=== PATIENT | male | born 1945 | race African-American/Black ===

== ENCOUNTER 2017-10-30 23:37 | Emergency (ER) | payer MEDICARE ==
[~2017-10-30] VITALS: Ht 182.9 cm; Wt 83.0 kg
[~2017-10-30 23:37] MED LIST: BACT800T5 PO; MECL-62 PO
[2017-10-30 23:42] VITALS: BP 166/83; PULSE 78; RESP 16; TEMP 97.5; O2SAT 100
[2017-10-31 02:12] VITALS: BP 182/88; PULSE 71; RESP 18; O2SAT 97
[2017-10-31] MEDS ORDERED: SODIUM CHLORIDE 0.9% FLUSH 10 ML FLUSH IVF PRN (02:30)
[2017-10-31 03:21] LABS: AUTOMATED NEUTROPHIL # 2.9 TH/MM3 (1.8-7.7); BASOPHIL % 0.7 % (0.0-2.0); EOSINOPHIL # 0.2 TH/MM3 (0-0.4); EOSINOPHIL % 4.4 % (0.0-4.0); HEMATOCRIT 33.6 % (39.0-51.0); HEMOGLOBIN 11.2 GM/DL (13.0-17.0); LYMPH % 32.2 % (9.0-44.0); LYMPHOCYTE # 1.7 TH/MM3 (1.0-4.8); MEAN CORPUSCULAR HEMOGLOBIN 31.7 PG (27.0-34.0); MEAN CORPUSCULAR HGB CONC 33.4 % (32.0-36.0); MEAN PLATELET VOLUME 7.6 FL (7.0-11.0); MONO % 8.5 % (0.0-8.0); MONOCYTE # 0.5 TH/MM3 (0-0.9); NEUT % 54.2 % (16.0-70.0); PLATELET COUNT 232 TH/MM3 (150-450); RED BLOOD COUNT 3.54 MIL/MM3 (4.50-5.90); RED CELL DISTRIBUTION WIDTH 14.6 % (11.6-17.2); WHITE BLOOD COUNT 5.4 TH/MM3 (4.0-11.0)
[2017-10-31 03:30] LABS: PROTHROMBIN TIME - PATIENT 10.3 SEC (9.8-11.6)
[2017-10-31 03:48] LABS: BICARBONATE 26.4 MEQ/L (21.0-32.0); CALCIUM 9.1 MG/DL (8.5-10.1); CREATININE 1.49 MG/DL (0.60-1.30); MAGNESIUM 2.3 MG/DL (1.5-2.5)
[2017-10-31 04:06] VITALS: BP 179/94; PULSE 80; RESP 18; O2SAT 96
--- NOTE | 2017-10-31 04:27 | PD ---
HPI Chief Complaint: Edema Time Seen by Provider: 02:14 Travel History International Travel<30 days: No Contact w/Intl Traveler<30days: No Traveled to known affect area: No History of Present Illness HPI 72-year-old male arrives to the ER due to a outpatient ultrasound of the right lower extremity revealing partial occlusion of multiple deep veins in the right thigh. He reports constant swelling of the right lower extremity from the toes to the knee proximally. He denies pain. Timing constant. Severity moderate. Onset gradual. Duration about 1 week. No shortness of breath or chest pain reported. He does not take anticoagulant. PFSH Past Medical History Hx Anticoagulant Therapy: No Cardiovascular Problems: No Chemotherapy: No Cerebrovascular Accident: No Diabetes: No Diminished Hearing: No Respiratory: No Immunizations Current: Yes Tetanus Vaccination: Unknown Past Surgical History Other Surgery: Yes (SKIN BIOPSY ON RIGHT UPPER SHOULDER BLADE) Social History Alcohol Use: No Tobacco Use: No (never) Substance Use: No Allergies-Medications (Allergen,Severity, Reaction): Coded Allergies: No Known Allergies (Verified Adverse Reaction, Unknown, 10/30/17) Reported Meds & Prescriptions Reported Meds & Active Scripts Active Eliquis (Apixaban) 5 Mg Tab 10 Mg PO BID Eliquis (Apixaban) 5 Mg Tab 5 Mg PO BID Review of Systems Except as stated in HPI: all other systems reviewed are Neg General / Constitutional: No: Fever Cardiovascular: No: Chest Pain or Discomfort Respiratory: No: Cough, Shortness of Breath Physical Exam Narrative GENERAL: 72-year-old male well-nourished well-developed no acute distress Vital Signs Date Time Temp Pulse Resp B/P (MAP) Pulse Ox O2 Delivery O2 Flow Rate FiO2 10/31/17 04:06 80 18 179/94 (122) 96 Room Air 10/31/17 02:12 71 18 182/88 (119) 97 Room Air 10/30/17 23:42 97.5 78 16 166/83 (110) 100 Room Air SKIN: Warm and dry. HEAD: Atraumatic. Normocephalic. EYES: Pupils equal and round. No scleral icterus. No injection or drainage. ENT: No nasal bleeding or discharge. Mucous membranes pink and moist. NECK: Trachea midline. No JVD. CARDIOVASCULAR: Regular rate and rhythm. RESPIRATORY: No accessory muscle use. Clear to auscultation. Breath sounds equal bilaterally. GASTROINTESTINAL: Abdomen soft, non-tender, nondistended. Hepatic and splenic margins not palpable. MUSCULOSKELETAL: 2+ pitting edema of the lower extremity on the right side from the foot to the knees. Left side is normal. NEUROLOGICAL: Awake and alert. No obvious cranial nerve deficits. Motor grossly within normal limits. Five out of 5 muscle strength in the arms and legs. Normal speech. PSYCHIATRIC: Appropriate mood and affect; insight and judgment normal. Data Data Last Documented VS Vital Signs Date Time Temp Pulse Resp B/P (MAP) Pulse Ox O2 Delivery O2 Flow Rate FiO2 10/31/17 04:06 80 18 179/94 (122) 96 Room Air 10/30/17 23:42 97.5 Orders Orders Basic Metabolic Panel (Bmp) (10/31/17 02:28) Complete Blood Count With Diff (10/31/17 02:28) Magnesium (Mg) (10/31/17 02:28) Prothrombin Time / Inr (Pt) (10/31/17 02:28) Act Partial Throm Time (Ptt) (10/31/17 02:28) Ecg Monitoring (10/31/17 02:28) Iv Access Insert/Monitor (10/31/17 02:28) Oximetry (10/31/17 02:28) Oxygen Administration (10/31/17 02:28) Sodium Chloride 0.9% Flush (Ns Flush) (10/31/17 02:30) Ct Pulmonary Angiogram (10/31/17 02:28) Iohexol 350 Inj (Omnipaque 350 Inj) (10/31/17 04:41) Labs Laboratory Tests Test 10/31/17 03:12 White Blood Count 5.4 TH/MM3 Red Blood Count 3.54 MIL/MM3 Hemoglobin 11.2 GM/DL Hematocrit 33.6 % Mean Corpuscular Volume 95.0 FL Mean Corpuscular Hemoglobin 31.7 PG Mean Corpuscular Hemoglobin Concent 33.4 % Red Cell Distribution Width 14.6 % Platelet Count 232 TH/MM3 Mean Platelet Volume 7.6 FL Neutrophils (%) (Auto) 54.2 % Lymphocytes (%) (Auto) 32.2 % Monocytes (%) (Auto) 8.5 % Eosinophils (%) (Auto) 4.4 % Basophils (%) (Auto) 0.7 % Neutrophils # (Auto) 2.9 TH/MM3 Lymphocytes # (Auto) 1.7 TH/MM3 Monocytes # (Auto) 0.5 TH/MM3 Eosinophils # (Auto) 0.2 TH/MM3 Basophils # (Auto) 0.0 TH/MM3 CBC Comment DIFF FINAL Differential Comment Prothrombin Time 10.3 SEC Prothromb Time International Ratio 1.0 RATIO Activated Partial Thromboplast Time 22.1 SEC Blood Urea Nitrogen 13 MG/DL Creatinine 1.49 MG/DL Random Glucose 94 MG/DL Calcium Level 9.1 MG/DL Magnesium Level 2.3 MG/DL Sodium Level 140 MEQ/L Potassium Level 2.9 MEQ/L Chloride Level 107 MEQ/L Carbon Dioxide Level 26.4 MEQ/L Anion Gap 7 MEQ/L Estimat Glomerular Filtration Rate 56 ML/MIN MDM Medical Decision Making Medical Screen Exam Complete: Yes Emergency Medical Condition: Yes Medical Record Reviewed: Yes Differential Diagnosis DVT, PE, coagulopathic disease Narrative Course CBC & BMP Diagram 10/31/17 03:12 Calcium Level 9.1, Magnesium Level 2.[address] Angiography 10/31/178 Signed Impressions: Service Date/Time: , October 31, 2017 04:44 - CONCLUSION: 1. No evidence of pulmonary embolism. 2. The lungs are clear Ben Oliver MD We had a very long discussion about the patient's diagnosis and the treatment. He verbalized understanding. The patient is unwilling to stay here in the hospital and if we are to start heparin and go about calling interventional radiology to initiate thrombectomy procedure the patient would almost certainly elope or leave AGAINST MEDICAL ADVICE. With this approach the patient will receive appropriate anticoagulant, Eliquis, and at the very least be appropriately anticoagulated to prevent propagation of these DVTs. Patient understands he can return any time however things quite unlikely. He did verbalize understanding of everything spoke about including strict compliance with Eliquis. We chose Eliquis because we have coupons here to provide at least one month supply of it. Diagnosis Primary Impression: DVT (deep venous thrombosis) Qualified Codes: I82.401 - Acute embolism and thrombosis of unspecified deep veins of right lower extremity Referrals: Primary Care Physician 2 days Med/Other Pt SpecificInfo: Prescription(s) given Scripts Apixaban (Eliquis) 5 Mg Tab 10 MG PO BID for Blood Clot Prevention, #14 TAB 0 Refills Prov: Thomas Isabel MD 10/31/17 Apixaban (Eliquis) 5 Mg Tab 5 MG PO BID for Blood Clot Prevention, #60 TAB 0 Refills Prov: Thomas Isabel MD 10/31/17 Disposition: 01 DISCHARGE HOME Condition: Stable Thomas Isabel MD Oct 31, 2017 04:27
[2017-10-31] MEDS ORDERED: IOHEXOL 350 MG/ML 10 ML VIAL (for RAD DIAG) IVCONTRAST ONE (04:41)
--- NOTE | 2017-10-31 05:00 | RADRPT ---
EXAM DATE/TIME: 10/31/2017 04:44 [facility] COMPARISON: No previous studies available for comparison. INDICATIONS : Right lower extremity swelling. IV CONTRAST: 75 cc Omnipaque 350 (iohexol) IV RADIATION DOSE: 16.57 CTDIvol (mGy) MEDICAL HISTORY : None SURGICAL HISTORY : None. ENCOUNTER: Initial ACUITY: 1 day PAIN SCALE: 4/10 LOCATION: Bilateral chest TECHNIQUE: Volumetric scanning of the chest was performed using a pulmonary embolism protocol MIP images were re constructed. Using automated exposure control and adjustment of the mA and/or kV according to patien t size, radiation dose was kept as low as reasonably achievable to obtain optimal diagnostic quality images. DICOM format image data is available electronically for review and comparison. Follow-up recommendations for detected pulmonary nodules are based at a minimum on nodule size and pa tient risk factors according to Fleischner Society Guidelines. FINDINGS: PULMONARY ARTERIES: No filling defects are seen in the pulmonary arteries through the segmental level. LUNGS: There is no consolidation or pneumothorax . No concerning pulmonary nodule is visualized. PLEURAE: There is no pleural thickening or pleural effusion. MEDIASTINUM: There is good visualization of the great vessels of the middle mediastinum. No evidence of mediastin al or hilar adenopathy/mass. MUSCULOSKELETAL: Within normal limits for patient age. MISCELLANEOUS: The visualized upper abdominal organs demonstrate no acute abnormality. CONCLUSION: 1. No evidence of pulmonary embolism. 2. The lungs are clear Ben Oliver MD on October 31, 2017 at 4:57 Board Certified Radiologist. This report was verified electronically.
[2017-10-31] MEDS ORDERED: APIX5TAB PO (05:04)
[2017-10-31] MEDS ORDERED: APIXABAN 5 MG TABLET PO ONE (05:30)
== END 2017-10-31 06:02 | disposition home or self-care (01) ==
LOC: NEPC 23:37
DX: I82.401 Acute embolism and thrombosis of unspecified deep veins of right lower extremity (principal); M79.89 Other specified soft tissue disorders; Z79.899 Other long term (current) drug therapy
CPT/HCPCS: 71275; 80048; 83735; 85025; 85610; 85730; 99284; Q9967

== ENCOUNTER 2018-02-11 13:53 | Observation (INO) | payer MEDICARE ==
[~2018-02-11] VITALS: Ht 188 cm; Wt 80.0 kg
[2018-02-11] VITALS (9 sets, daily range): BP systolic 135–175; BP diastolic 78–92; PULSE 65–87; RESP 15–18; TEMP 97.6–98.1; O2SAT 97–100
[~2018-02-11 13:53] MED LIST changes: +APIX5TAB PO; -BACT800T5 PO; -MECL-62 PO
--- NOTE | 2018-02-11 14:24 | PD ---
HPI Chief Complaint: Stroke Alert Time Seen by Provider: 13:58 Travel History International Travel<30 days: No Contact w/Intl Traveler<30days: No Traveled to known affect area: No History of Present Illness HPI Patient is a 72-year-old male who presents the emergency room for evaluation of possible CVA. Patient reports that he went to pay his water bottle around 11: 30 AM this morning, reports that he began to have right arm weakness. Patient reports that he was talking to his brother on the phone, his brother was concerned that he was slurring his speech. His brother called EMS to come evaluate patient. EMS reports that patient initially refused to come to the ER but then was agreeable. Patient reports that the only symptoms he is having at this time is subjective right arm weakness and slurring of speech. PFSH Past Medical History Hx Anticoagulant Therapy: No Cardiovascular Problems: No Chemotherapy: No Cerebrovascular Accident: No Diabetes: No Diminished Hearing: No Respiratory: No Immunizations Current: Yes Past Surgical History Other Surgery: Yes (SKIN BIOPSY ON RIGHT UPPER SHOULDER BLADE) Social History Alcohol Use: No Tobacco Use: No (never) Substance Use: No Allergies-Medications (Allergen,Severity, Reaction): Coded Allergies: No Known Allergies (Verified Adverse Reaction, Unknown, 02/11/18) Reported Meds & Prescriptions Reported Meds & Active Scripts Active Eliquis (Apixaban) 5 Mg Tab 10 Mg PO BID Eliquis (Apixaban) 5 Mg Tab 5 Mg PO BID Review of Systems General / Constitutional: No: Fever Eyes: No: Visual changes HENT: No: Headaches Cardiovascular: No: Chest Pain or Discomfort Respiratory: No: Shortness of Breath Gastrointestinal: No: Abdominal Pain Genitourinary: No: Dysuria Musculoskeletal: No: Pain Skin: No Rash Neurologic: Positive: Weakness Psychiatric: No: Depression Endocrine: No: Polydipsia Hematologic/Lymphatic: No: Easy Bruising Physical Exam Narrative GENERAL: Moderate distress SKIN: Focused skin assessment warm/dry. HEAD: Atraumatic. Normocephalic. EYES: Pupils equal and round. No scleral icterus. No injection or drainage. ENT: No nasal bleeding or discharge. Mucous membranes pink and moist. NECK: Trachea midline. No JVD. CARDIOVASCULAR: Regular rate and rhythm. No murmur appreciated. RESPIRATORY: No accessory muscle use. Clear to auscultation. Breath sounds equal bilaterally. GASTROINTESTINAL: Abdomen soft, non-tender, nondistended. Hepatic and splenic margins not palpable. MUSCULOSKELETAL: No obvious deformities. No clubbing. No cyanosis. No edema. NEUROLOGICAL: Awake and alert. Motor grossly within normal limits. Slurring of speech, patient with NIH scale of 1 PSYCHIATRIC: Appropriate mood and affect; insight and judgment normal. Data Data Last Documented VS Vital Signs Date Time Temp Pulse Resp B/P (MAP) Pulse Ox O2 Delivery O2 Flow Rate FiO2 02/11/18 15:30 67 15 171/92 (118) 100 Room Air 02/11/18 14:16 98.1 Orders Orders Diet Npo (02/11/18 Dinner) Activity Bed Rest (02/11/18 ) Electrocardiogram (02/11/18 ) I-Stat Profile (02/11/18 14:11) Prothrombin Time / Inr (Pt) (02/11/18 14:11) Act Partial Throm Time (Ptt) (02/11/18 14:11) Complete Blood Count With Diff (02/11/18 14:11) Fibrinogen (02/11/18 14:11) Creatine Kinase (Cpk) (02/11/18 14:11) Troponin I (02/11/18 14:11) Ua Includes Microscopic (02/11/18 14:11) Drug Screen, Random Urine (02/11/18 14:11) Type And Screen (02/11/18 14:11) Ct Brain W/O Iv Contrast(Rout) (02/11/18 ) Cta Brain W Iv Contrast W 3d (02/11/18 14:11) Cta Neck W Iv Contrast W 3d (02/11/18 14:11) Consult Neurology (02/11/18 ) Blood Glucose (02/11/18 14:11) Ecg Monitoring (02/11/18 14:11) Neuro Checks Q2HX12,Q4H (02/11/18 14:11) Nursing Bedside Swallow Assess .ONCE (02/11/18 14:11) Iv Access Insert/Monitor (02/11/18 14:11) NPO (02/11/18 14:11) Oximetry (02/11/18 14:11) Resp Oxygen Nc Stroke (02/11/18 ) Cath For Specimen (02/11/18 14:11) Chest, Single Ap (02/11/18 14:15) (Hub Use Only)Inp Phy Cons/Ref (02/11/18 ) Iodixanol 320 Inj (Rad Ct) (Visipaque 32 (02/11/18 14:39) Aspirin Supp (Aspirin Supp) (02/11/18 15:00) Clopidogrel (Plavix) (02/11/18 15:15) Aspirin Chew (Aspirin Chew) (02/11/18 15:30) Ceftriaxone Inj (Rocephin Inj) (02/11/18 16:00) Admit Order (Ed Use Only) (02/11/18 16:08) Labs Laboratory Tests Test 02/11/18 14:10 02/11/18 15:00 02/11/18 15:20 White Blood Count 3.5 TH/MM3 Red Blood Count 3.88 MIL/MM3 Hemoglobin 12.0 GM/DL Bedside Hemoglobin 11.6 G/DL Hematocrit 35.4 % Bedside Hematocrit 34.0 % Mean Corpuscular Volume 91.1 FL Mean Corpuscular Hemoglobin 30.9 PG Mean Corpuscular Hemoglobin Concent 33.9 % Red Cell Distribution Width 16.2 % Platelet Count 188 TH/MM3 Mean Platelet Volume 7.7 FL Neutrophils (%) (Auto) 54.6 % Lymphocytes (%) (Auto) 32.5 % Monocytes (%) (Auto) 9.7 % Eosinophils (%) (Auto) 2.7 % Basophils (%) (Auto) 0.5 % Neutrophils # (Auto) 1.9 TH/MM3 Lymphocytes # (Auto) 1.1 TH/MM3 Monocytes # (Auto) 0.3 TH/MM3 Eosinophils # (Auto) 0.1 TH/MM3 Basophils # (Auto) 0.0 TH/MM3 CBC Comment DIFF FINAL Differential Comment Prothrombin Time 10.3 SEC Prothromb Time International Ratio 1.0 RATIO Activated Partial Thromboplast Time 23.3 SEC Fibrinogen 273 mg/dL Bedside Sodium 141 MMOL/L Bedside Potassium 3.7 MMOL/L Bedside Chloride 105 MMOL/L Bedside Blood Urea Nitrogen 21 MG/DL Bedside Creatinine 1.3 MG/DL Bedside Glucose 105 MG/DL Total Creatine Kinase 116 U/L Troponin I 0.11 NG/ML Urine Color GREEN Urine Turbidity CLOUDY Urine pH 6.0 Urine Specific [place] 1.025 Urine Protein TRACE mg/dL Urine Glucose (UA) NEG mg/dL Urine Ketones NEG mg/dL Urine Occult Blood SMALL Urine Nitrite NEG Urine Bilirubin NEG Urine Urobilinogen LESS THAN 2.0 MG/DL Urine Leukocyte Esterase MOD Urine RBC /hpf Urine WBC 68 /hpf Urine Squamous Epithelial Cells <1 /hpf Urine Bacteria RARE /hpf Urine Mucus FEW /lpf Urine Opiates Screen NEG Urine Barbiturates Screen NEG Urine Amphetamines Screen NEG Urine Benzodiazepines Screen NEG Urine Cocaine Screen NEG Urine Cannabinoids Screen NEG MDM Medical Screen Exam Complete: Yes Emergency Medical Condition: Yes Medical Record Reviewed: Yes Differential Diagnosis cva, tia, intracranial hemorrhage, acs, arrhythmia Narrative Course During the course of the patients emergency department visit, the patients history, examination, and differential diagnosis were reviewed with the patient. The patient was placed on a electronic device monitor with oximetry and frequent blood pressure monitoring. The patient had an IV access obtained and blood work sent for analysis. [id number] Patient is a 72 year old male who presents to the ER with complaints of slurring of speech as well as subjective right upper extremity weakness. On exam, patient has good muscle strength to bilateral upper extremities, there is no pronator drift, he does have slurring of speech on exam. NIH scale [address] Nixon at 2:18pm - request TPA offered to patient. [id number]: patient brother at bedside, reports that speech is back to baseline, reported concerns that he did have slurring of speech earlier today, patient reports that he is feeling better and right arm weakness has improved The patient was initially provided aspirin The patients laboratory studies were reviewed and remarkable for Laboratory Tests Test 02/11/18 14:10 White Blood Count 3.5 TH/MM3 (4.0-11.0) Red Blood Count 3.88 MIL/MM3 (4.50-5.90) Hemoglobin 12.0 GM/DL (13.0-17.0) Bedside Hemoglobin 11.6 G/DL (13.0-17.0) Hematocrit 35.4 % (39.0-51.0) Bedside Hematocrit 34.0 % (39.0-51.0) Mean Corpuscular Volume 91.1 FL (80.0-100.0) Mean Corpuscular Hemoglobin 30.9 PG (27.0-34.0) Mean Corpuscular Hemoglobin Concent 33.9 % (32.0-36.0) Red Cell Distribution Width 16.2 % (11.6-17.2) Platelet Count 188 TH/MM3 (150-450) Mean Platelet Volume 7.7 FL (7.0-11.0) Neutrophils (%) (Auto) 54.6 % (16.0-70.0) Lymphocytes (%) (Auto) 32.5 % (9.0-44.0) Monocytes (%) (Auto) 9.7 % (0.0-8.0) Eosinophils (%) (Auto) 2.7 % (0.0-4.0) Basophils (%) (Auto) 0.5 % (0.0-2.0) Neutrophils # (Auto) 1.9 TH/MM3 (1.8-7.7) Lymphocytes # (Auto) 1.1 TH/MM3 (1.0-4.8) Monocytes # (Auto) 0.3 TH/MM3 (0-0.9) Eosinophils # (Auto) 0.1 TH/MM3 (0-0.4) Basophils # (Auto) 0.0 TH/MM3 (0-0.2) CBC Comment DIFF FINAL Differential Comment Prothrombin Time 10.3 SEC (9.8-11.6) Prothromb Time International Ratio 1.0 RATIO Activated Partial Thromboplast Time 23.3 SEC (24.3-30.1) Bedside Sodium 141 MMOL/L (137-144) Bedside Potassium 3.7 MMOL/L (3.6-5.0) Bedside Chloride 105 MMOL/L (102-111) Bedside Blood Urea Nitrogen 21 MG/DL (5-21) Bedside Creatinine 1.3 MG/DL (0.6-1.3) Bedside Glucose 105 MG/DL (68-110) Radiology studies were reviewed and remarkable for Last Impressions Head CT 02/11/18 0000 Signed Impressions: CONCLUSION: 1. No acute intracranial abnormality is identified. 2. Chronic findings include mild generalized atrophy and mild periventricular white matter low-attenuation characteristic of chronic microvascular ischemia. Patient with resolution of symptoms - most likely TIA - patient does not require TPA at this time Dr. Nixon request asa and plavix and tia workup case reviewed with Dr. Valadez who accepts pt to service Critical Care Narrative Aggregate critical care time was 30 minutes. Time to perform other separately billable procedures was not included in the critical care time. My time did not include minutes spent treating any other patients simultaneously or on activities that did not directly contribute to the patient's treatment. The services I provided to this patient were to treat and/or prevent clinically significant deterioration that could result in: , decompensation, deterioration I provided critical care services requiring my management, as noted below: Chart data review, documentation time, medication orders and management, vital sign assessments/reviewing monitor data, ordering and reviewing lab tests, ordering and interpreting/reviewing x-rays and diagnostic studies, care of the patient and discussion of the patient with the admitting physicians. Stroke Alert NIHSS NIH Stroke Scale Result: 1 NIHSS Time Completed: 14:16 Diagnosis Diagnosis: Primary Impression: TIA (transient ischemic attack) Qualified Codes: G45.9 - Transient cerebral ischemic attack, unspecified Additional Impression: UTI (urinary tract infection) Admitting Physician Requests: Observation [place] Gorman DO Feb 11, 2018 14:24
[2018-02-11 14:31] LABS: AUTOMATED NEUTROPHIL # 1.9 TH/MM3 (1.8-7.7); BASOPHIL % 0.5 % (0.0-2.0); EOSINOPHIL # 0.1 TH/MM3 (0-0.4); EOSINOPHIL % 2.7 % (0.0-4.0); HEMATOCRIT 35.4 % (39.0-51.0); LYMPH % 32.5 % (9.0-44.0); LYMPHOCYTE # 1.1 TH/MM3 (1.0-4.8); MEAN CELL VOLUME 91.1 FL (80.0-100.0); MEAN CORPUSCULAR HEMOGLOBIN 30.9 PG (27.0-34.0); MEAN CORPUSCULAR HGB CONC 33.9 % (32.0-36.0); MEAN PLATELET VOLUME 7.7 FL (7.0-11.0); MONO % 9.7 % (0.0-8.0); MONOCYTE # 0.3 TH/MM3 (0-0.9); NEUT % 54.6 % (16.0-70.0); PLATELET COUNT 188 TH/MM3 (150-450); RED BLOOD COUNT 3.88 MIL/MM3 (4.50-5.90); RED CELL DISTRIBUTION WIDTH 16.2 % (11.6-17.2); WHITE BLOOD COUNT 3.5 TH/MM3 (4.0-11.0)
--- NOTE | 2018-02-11 14:36 | RADRPT ---
EXAM DATE: 02/11/2018 2:31 PM EDT AGE/SEX: 72 years / Male INDICATIONS: Stroke alert, slurred speech. CLINICAL DATA: This is the patient's initial encounter. Patient reports that signs and symptoms have been present for 1 day and indicates a pain score of Nonresponsive. MEDICAL/SURGICAL HISTORY: Non-responsive. Non-responsive. RADIATION DOSE: 56.35 CTDI (mGy) COMPARISON: No prior [place] exams available for comparison. Report was telephoned to Dr. Gorman by Dr. Sanchez at 2:32 PM. TECHNIQUE: CT of the head without contrast. Using automated exposure control and adjustment of the mA and/or kV according to patient size, radiation dose was kept as low as reasonably achievable to ob tain optimal diagnostic quality images. FINDINGS: Cerebrum: There is mild generalized atrophy and ventricles are normal given the degree of atrophy. M ild periventricular white matter change is present. No midline shift, mass lesion, hemorrhage or acu te infarction. No extraaxial fluid collections are seen. Posterior Fossa: The cerebellum and brainstem demonstrate no acute abnormality. The 4th ventricle is midline. The cerebellopontine angle is within normal limits. Extracranial: The visualized sinuses are clear. Skull: The calvaria is intact. No skull fracture. CONCLUSION: 1. No acute intracranial abnormality is identified. 2. Chronic findings include mild generalized atrophy and mild periventricular white matter low-atten uation characteristic of chronic microvascular ischemia. Electronically signed by: Taran Sanchez MD 02/11/2018 2:34 PM EDT
[2018-02-11] MEDS ORDERED: IODIXANOL 320 MG/ML 10 ML VIAL (for Rad CT) IVCONTRAST ONE (14:39)
[2018-02-11 14:42] LABS: PROTHROMBIN TIME - PATIENT 10.3 SEC (9.8-11.6)
[2018-02-11 14:55] LABS: TROPONIN I 0.11 NG/ML (0.02-0.05)
[2018-02-11] MEDS ORDERED: ASPIRIN 300 MG SUPP RECTAL ONE (15:00)
--- NOTE | 2018-02-11 15:09 | RADRPT ---
EXAM DATE: 02/11/2018 2:58 PM EDT AGE/SEX: 72 years / Male INDICATIONS: Stroke alert, slurred speech. CLINICAL DATA: This is the patient's initial encounter. Patient reports that signs and symptoms have been present for 1 day and indicates a pain score of Nonresponsive. MEDICAL/SURGICAL HISTORY: Non-responsive. Non-responsive. RADIATION DOSE: 10.66 CTDI (mGy) ; Combined studies COMPARISON: [facility], CT BRAIN W/O CONTRAST, 02/11/2018. . TECHNIQUE: Volumetric scanning was performed using a multi-row detector CT scanner during bolus infu lizette of 75 ml Visipaque 320 (iodixanol) nonionic water-soluble contrast as a cumulative dose for mul tiple exams. The data was post processed with a variety of visualization algorithms including full volume maximum intensity projection, multi-planar sliding thin slab reformation, curved planar reform ation, and surface rendering techniques. Using automated exposure control and adjustment of the mA a nd/or kV according to patient size, radiation dose was kept as low as reasonably achievable to obtain optimal diagnostic quality images. FINDINGS: Anterior circulation: The internal carotid arteries demonstrate no abnormality or significant stenosi s. A1 segments are symmetric. Anterior cerebral arteries and middle cerebral arteries demonstrate sym metric enhancement without stenosis or aneurysm visualized. Posterior circulation: Right vertebral artery is dominant. Basilar artery demonstrates no abnormality or aneurysm. Posterior cerebral arteries demonstrate no significant stenosis. CONCLUSION: No acute intracranial vascular abnormality is identified. No occluded arterial vessels are seen. Electronically signed by: Taran Sanchez MD 02/11/2018 3:07 PM EDT
[2018-02-11] MEDS ORDERED: CLOPIDOGREL 75 MG TAB PO ONE (15:15)
[2018-02-11] MEDS ORDERED: ASPIRIN 81 MG CHEW TAB CHEW ONE (15:30)
--- NOTE | 2018-02-11 15:42 | RADRPT ---
EXAM DATE: 02/11/2018 3:33 PM EDT AGE/SEX: 72 years / Male INDICATIONS: Short of breath. CLINICAL DATA: This is the patient's initial encounter. Patient reports that signs and symptoms have been present for 1 day and indicates a pain score of 0/10. MEDICAL/SURGICAL HISTORY: None. None. COMPARISON: No prior [place] exams available for comparison. FINDINGS: A single AP view of the chest demonstrates the lungs to be symmetrically aerated without evidence of mass, infiltrate or effusion. The cardiomediastinal contours are unremarkable. Osseous structures a re intact. CONCLUSION: Negative examination. Electronically signed by: Camron Galloway MD 02/11/2018 3:41 PM EDT
[2018-02-11 15:46] LABS: BACTERIA, URINE RARE /hpf; BILIRUBIN, URINE NEG (NEG); BLOOD, URINE SMALL (NEG); GLUCOSE,URINE NEG (NEG); KETONE, URINE NEG (NEG); MUCUS URINE FEW /lpf (OCC); NITRITE,URINE NEG (NEG); SQUAMOUS EPITHELIAL CELL URINE <1 /hpf (0-5); URINE COLOR GREEN (YELLW/STRAW); URINE LEUKOCYTE ESTERASE MOD (NEG)
[2018-02-11] MEDS ORDERED: cefTRIAXone INJ 1,000 MG in SODIUM CHLORIDE 0.9% INJ 100 ML IV ONE (16:00)
--- NOTE | 2018-02-11 16:00 | RADRPT ---
EXAM DATE: 02/11/2018 3:03 PM EDT AGE/SEX: 72 years / Male INDICATIONS: Stroke alert, slurred speech. CLINICAL DATA: This is the patient's initial encounter. Patient reports that signs and symptoms have been present for 1 day and indicates a pain score of Nonresponsive. MEDICAL/SURGICAL HISTORY: Non-responsive. Non-responsive. RADIATION DOSE: 10.66 CTDI (mGy) ; Combined studies COMPARISON: No prior [place] exams available for comparison. TECHNIQUE: Volumetric scanning was performed using a multirow detector CT scanner during bolus infus ion of 75 ml Visipaque 320 (iodixanol) nonionic water-soluble contrast as a cumulative dose for mult iple exams. The data was postprocessed with a variety of visualization algorithms including full-vo lume maximum intensity projection, multiplanar sliding thin-slab reformation, curved-planar reformati on, and surface-rendering techniques. Using automated exposure control and adjustment of the mA and/ or kV according to patient size, radiation dose was kept as low as reasonably achievable to obtain op timal diagnostic quality images. Elevated flow velocities and ICA/CCA ratios have been found to correlate with increased degrees of ve ssel stenosis, calculated as percentage of diameter relative to a normal segment of distal ICA/CCA. FINDINGS: Aortic Arch: There is a bovine arch with left vertebral artery originating directly from the arch be tween the common trunk and left subclavian artery. Right Carotid: Common carotid artery is within normal limits. Carotid bulb demonstrates no significa nt atherosclerotic disease or stenosis. No dissection or aneurysm is present. Left Carotid: Common carotid artery is within normal limits. Carotid bulb demonstrates no significan t atherosclerotic disease or stenosis. No dissection or aneurysm is present. Vertebrals: Right vertebral artery is dominant. Other: The visualized surrounding structures demonstrate no acute finding. CONCLUSION: Neck arterial vasculature demonstrates no significant abnormality. Electronically signed by: Taran Sanchez MD 02/11/2018 3:59 PM EDT
[2018-02-11] MEDS ORDERED: [UNRECOGNIZED DRUG - REMARK] OTHER SCH (17:30)
[2018-02-11] MEDS ORDERED: NALOXONE HCL 0.4 MG/ML AMP IV PUSH PRN (17:45)
[2018-02-11] MEDS ORDERED: MAGNESIUM HYDROXIDE SUSP 30 ML CUP PO PRN (17:45)
[2018-02-11] MEDS ORDERED: ACETAMINOPHEN 325 MG TAB PO PRN (17:45)
[2018-02-11] MEDS ORDERED: SODIUM CHLORIDE 0.9% FLUSH 10 ML FLUSH IV FLUSH PRN (17:45)
[2018-02-11] MEDS ORDERED: SENNOSIDES 8.6 MG TAB PO PRN (17:45)
--- NOTE | 2018-02-11 17:54 | HHI.HP ---
[facility] Service [facility] Primary Care Physician Taran Goldstein MD Admission Diagnosis TIA Diagnoses: Chief Complaint: Right arm weakness, slurred speech Travel History International Travel<30 Days: No Contact w/Intl Traveler <30 Da: No Traveled to Known Affected Are: No History of Present Illness Patient is a 72-year-old AF male with past medical history of DVT, BPH who came into the hospital for evaluation of possible CVA. Patient states that he went to pay his water bill and he felt right arm weakness, states it "feels funny," decreased strength and he is unable to control it. States it came on and off and he went home and was talked to his brother and he also felt his speech is funny, unable to control. Brother states that he started slurring his speech. They were concerned about the symptoms that he came to the hospital by EMS ambulance. At the hospital, patient states everything now is back to his normal. Brother and niece at the bedside who states that he is back to his baseline. As per nursing, patient wanted to go home. Discussed with patient importance of compliance of staying until seen by neurologist and also compliance with medical management. Patient verbalized understanding and states he will stay. Denies right upper arm extremity, slurred speech. Denies change in vision, and equal strength. Denies pain and discomfort. Denies SOB/ dyspnea. Denies chest pain, palpitations, headaches, dizziness. Denies fevers, chills, n/v/d. Denies dysuria. Patient denies history of hypertension, diabetes, hypothyroidism, hyperlipidemia. Patient states he has right lower extremity leg blood clot before, leg was swollen and he was given medication for it. Patient unable to remember the medication. States that he went to [facility] and refill the medication but he was unable to. He only took the medication for approximately 30 days. Per review of records patient was seen October 2017 and was prescribed Eliquis for 30 days. initial vital sign 143/78, 98.1, 80, 17 Chest x-ray negative Head CTA no acute intracranial vascular abnormality is identified. No occluded arterial vessels are seen Head CT showed no acute intracranial abnormality is identified. Chronic findings include mild generalized atrophy and mild periventricular white matter low-attenuation characteristic of chronic microvascular ischemia Review of Systems Except as stated in HPI: all other systems reviewed are Neg Past Family Social History Past Medical History DVT BPH Past Surgical History None Reported Medications Reported Meds & Active Scripts Active Eliquis (Apixaban) 5 Mg Tab 10 Mg PO BID Eliquis (Apixaban) 5 Mg Tab 5 Mg PO BID Allergies: Coded Allergies: No Known Allergies (Verified Adverse Reaction, Unknown, 02/11/18) Family History Mother has hypertension Father of prostate cancer Social History Denies alcohol use Denies tobacco use Denies illicit drug Physical Exam Vital Signs Vital Signs Date Time Temp Pulse Resp B/P (MAP) Pulse Ox O2 Delivery O2 Flow Rate FiO2 02/11/18 15:30 67 15 171/92 (118) 100 Room Air 02/11/18 14:19 87 18 100 Room Air 02/11/18 14:16 98.1 87 18 143/78 (99) 100 Room Air 02/11/18 14:15 98.1 87 18 143/78 (99) 100 Room Air 02/11/18 14:15 100 Room Air 02/11/18 14:07 98.1 80 17 143/78 (99) 100 Physical Exam GENERAL: This is a well-nourished, well-developed patient, in no apparent distress. SKIN: No rashes, ecchymoses or lesions. Cool and dry. HEAD: Normocephalic. . EYES: Pupils equal round and reactive. Extraocular motions intact. No scleral icterus. No injection or drainage. ENT: Nose without bleeding. Throat without erythema. Uvula midline. Airway patent. NECK: Trachea midline. CARDIOVASCULAR: Regular rate and rhythm without murmurs, gallops, or rubs. RESPIRATORY: Clear to auscultation. Breath sounds equal bilaterally. No wheezes , rales, or rhonchi. GASTROINTESTINAL: Abdomen soft, non-tender, nondistended. MUSCULOSKELETAL: Extremities without clubbing, cyanosis, or edema. NEUROLOGICAL: Awake and alert. Cranial nerves II through XII intact. Motor and sensory grossly within normal limits. Equal strength both upper and lower extremities. Normal to slurred speech. Laboratory Laboratory Tests Test 02/11/18 14:10 02/11/18 15:00 02/11/18 15:20 White Blood Count 3.5 Red Blood Count 3.88 Hemoglobin 12.0 Bedside Hemoglobin 11.6 Hematocrit 35.4 Bedside Hematocrit 34.0 Mean Corpuscular Volume 91.1 Mean Corpuscular Hemoglobin 30.9 Mean Corpuscular Hemoglobin Concent 33.9 Red Cell Distribution Width 16.2 Platelet Count 188 Mean Platelet Volume 7.7 Neutrophils (%) (Auto) 54.6 Lymphocytes (%) (Auto) 32.5 Monocytes (%) (Auto) 9.7 Eosinophils (%) (Auto) 2.7 Basophils (%) (Auto) 0.5 Neutrophils # (Auto) 1.9 Lymphocytes # (Auto) 1.1 Monocytes # (Auto) 0.3 Eosinophils # (Auto) 0.1 Basophils # (Auto) 0.0 CBC Comment DIFF FINAL Differential Comment Prothrombin Time 10.3 Prothromb Time International Ratio 1.0 Activated Partial Thromboplast Time 23.3 Fibrinogen 273 Bedside Sodium 141 Bedside Potassium 3.7 Bedside Chloride 105 Bedside Blood Urea Nitrogen 21 Bedside Creatinine 1.3 Bedside Glucose 105 Total Creatine Kinase 116 Troponin I 0.11 Urine Color GREEN Urine Turbidity CLOUDY Urine pH 6.0 Urine Specific [place] 1.025 Urine Protein TRACE Urine Glucose (UA) NEG Urine Ketones NEG Urine Occult Blood SMALL Urine Nitrite NEG Urine Bilirubin NEG Urine Urobilinogen LESS THAN 2.0 Urine Leukocyte Esterase MOD Urine RBC Urine WBC 68 Urine Squamous Epithelial Cells <1 Urine Bacteria RARE Urine Mucus FEW Urine Opiates Screen NEG Urine Barbiturates Screen NEG Urine Amphetamines Screen NEG Urine Benzodiazepines Screen NEG Urine Cocaine Screen NEG Urine Cannabinoids Screen NEG Result Diagram: 02/11/18 1410 Imaging Last Impressions Chest X-Ray 02/11/18 1415 Signed Impressions: CONCLUSION: Negative examination. Neck CTA 02/11/18 141 Signed Impressions: CONCLUSION: Neck arterial vasculature demonstrates no significant abnormality. Head CTA 02/11/18 1411 Signed Impressions: CONCLUSION: No acute intracranial vascular abnormality is identified. No occluded arterial vessels are seen. Head CT 02/11/18 0000 Signed Impressions: CONCLUSION: 1. No acute intracranial abnormality is identified. 2. Chronic findings include mild generalized atrophy and mild periventricular white matter low-attenuation characteristic of chronic microvascular ischemia. Caprini VTE Risk Assessment Caprini VTE Risk Assessment: Mod/High Risk (score >= 2) Caprini Risk Assessment Model Point Value = 1 Point Value = 2 Point Value = 3 Point Value = 5 Age 41-60 Minor surgery BMI > 25 kg/m2 Swollen legs Varicose veins or History of unexplained or recurrent spontaneous Oral contraceptives or hormone replacement Sepsis (< 1 month) Serious lung disease, including pneumonia (< 1 month) Abnormal pulmonary function Acute myocardial infarction Congestive heart failure (< 1 month) History of inflammatory bowel disease Medical patient at bed rest Age 61-74 Arthroscopic surgery Major open surgery (> 45 min) Laparoscopic surgery (> 45 min) Malignancy Confined to bed (> 72 hours) Immobilizing plaster cast Central venous access Age >= 75 History of VTE Family history of VTE Factor V Leiden Prothrombin [id number] Lupus anticoagulant Anticardiolipin antibodies Elevated serum homocysteine Heparin-induced thrombocytopenia Other congenital or acquired thrombophilia Stroke (< 1 month) Elective arthroplasty Hip, pelvis, or leg fracture Acute spinal cord injury (< 1 month) Prophylaxis Regimen Total Risk Factor Score Risk Level Prophylaxis Regimen 0-1 Low Early ambulation 2 Moderate Order ONE of the following: *Sequential Compression Device (SCD) *Heparin 5000 units SQ BID 3-4 Higher Order ONE of the following medications: *Heparin 5000 units SQ TID *Enoxaparin/Lovenox 40 mg SQ daily (WT < 150 kg, CrCl > 30 mL/min) *Enoxaparin/Lovenox 30 mg SQ daily (WT < 150 kg, CrCl > 10-29 mL/min) *Enoxaparin/Lovenox 30 mg SQ BID (WT < 150 kg, CrCl > 30 mL/min) AND/OR *Sequential Compression Device (SCD) 5 or more Highest Order ONE of the following medications: *Heparin 5000 units SQ TID (Preferred with Epidurals) *Enoxaparin/Lovenox 40 mg SQ daily (WT < 150 kg, CrCl > 30 mL/min) *Enoxaparin/Lovenox 30 mg SQ daily (WT < 150 kg, CrCl > 10-29 mL/min) *Enoxaparin/Lovenox 30 mg SQ BID (WT < 150 kg, CrCl > 30 mL/min) AND *Sequential Compression Device (SCD) Assessment and Plan Problem List: (1) UTI (urinary tract infection) ICD Code: N39.0 - Urinary tract infection, site not specified Status: Acute (2) TIA (transient ischemic attack) ICD Code: G45.9 - Transient cerebral ischemic attack, unspecified Status: Acute Assessment and Plan Patient is a 72-year-old AF male with past medical history of DVT, BPH who came into the hospital for evaluation of possible CVA. Transient ischemic attack, acute -Reports of right upper extremity weakness, slurred speech -CT of the head negative -CTA of the neck and brain negative -Chest x-ray negative -Neurology consulted for further recommendations and evaluation. Appreciate recommendation. -Patient was offered TPA in the ED -Discussed extensively that he needs to likely stay overnight for observation. Patient wanting to go home. Discussed and explained with family members at the bedside. -Patient was given aspirin, Plavix -Check lipid profile, LFT -PT eval and treat Urinary tract infection BPH -Patient is being treated for urinary tract infection in the outpatient, this is recurrent -Reports BPH and taking medication but does not know what medication he is taking -Patient was given IV ceftriaxone. Will continue. Follow-up cultures. History of right lower extremity DVT -Took Eliquis for only a month in October. Questionable compliance -Right lower extremity without swelling, pain but per review of records partial occlusion of multiple deep veins in the right thigh. -US doppler DVT prop SCDs Code Status Full Code Discussed Condition With Patient, nursing, Dr. De La Cruz Problem Qualifiers (1) TIA (transient ischemic attack): Qualified Codes: G45.9 - Transient cerebral ischemic attack, unspecified Jennifer Mcknight Feb 11, 2018 17:54
[2018-02-11] MEDS ORDERED: PHEN-510 PO (18:34)
[2018-02-11] MEDS ORDERED: URIB118C PO (18:34)
--- NOTE | 2018-02-11 18:47 | PD.CONS ---
History of Present Illness Service Neurology Consult Requested By ER Reason for Consult Stroke alert Primary Care Physician Taran Goldstein MD History of Present Illness 72-year-old AF male with past medical history of DVT, BPH who came into the hospital for evaluation of possible stroke. Given his stroke alert altered speech right arm weakness. States his noticed after done some exercise class. While in the ER his symptoms resolved and thus is not IV TPA candidate. He seen in the ER for partially occlusive DVT started on Eliquis. Patient cannot reliably state that he has been taking this medication or had a refill. Head CTA no acute intracranial vascular abnormality is identified. No occluded arterial vessels are seen Head CT showed no acute intracranial abnormality is identified. Chronic findings include mild generalized atrophy and mild periventricular white matter low-attenuation characteristic of chronic microvascular ischemia Review of Systems Except as stated in HPI: all other systems reviewed are Neg Past Family Social History Past Medical History DVT BPH Past Surgical History None Reported Medications Reported Meds & Active Scripts Active Eliquis (Apixaban) 5 Mg Tab 5 Mg PO BID Allergies: Coded Allergies: No Known Allergies (Verified Adverse Reaction, Unknown, 02/11/18) Family History Mother has hypertension Father of prostate cancer Social History Denies alcohol use Denies tobacco use Denies illicit drug Review of Systems All other ROS: ROS reviewed as documented in chart Past Family Social History Allergies: Coded Allergies: No Known Allergies (Verified Adverse Reaction, Unknown, 02/11/18) Active Ordered Medications Current Medications Medications (Trade) Dose Ordered Sig/Phyllis Route Start Time Stop Time Status Last Admin (NS Flush) 2 ml UNSCH PRN IV FLUSH 02/11/18 17:45 (NS Flush) 2 ml BID IV FLUSH 02/11/18 21:00 (Tylenol) 650 mg Q4H PRN PO 02/11/18 17:45 (Narcan Inj) 0.4 mg UNSCH PRN IV PUSH 02/11/18 17:45 (Milk Of Magnesia Liq) 30 ml Q12H PRN PO 02/11/18 17:45 (Senokot) 17.2 mg Q12H PRN PO 02/11/18 17:45 Exam I&O / VS 02/11/18 02/11/18 02/12/18 15:00 23:00 07:00 Intake Total 100 ml Balance 100 ml Intake IV Total 100 ml Vital Signs Date Time Temp Pulse Resp B/P (MAP) Pulse Ox O2 Delivery O2 Flow Rate FiO2 02/11/18 18:04 65 16 175/88 (117) 100 02/11/18 18:01 65 16 175/88 (117) 100 Room Air 02/11/18 15:30 67 15 171/92 (118) 100 Room Air 02/11/18 14:19 87 18 100 Room Air 02/11/18 14:16 98.1 87 18 143/78 (99) 100 Room Air 02/11/18 14:15 98.1 87 18 143/78 (99) 100 Room Air 02/11/18 14:15 100 Room Air 02/11/18 14:07 98.1 80 17 143/78 (99) 100 General: Alert and Oriented, No acute distress Eye: EOMI Respiratory: Non-labored respirations Neurologic: Alert, Oriented, Normal sensory, Normal motor, No focal defects, CN II-XII intact, Normal DTR's Psychiatric: Cooperative, Appropriate mood & affect, Normal judgement Exam Comments Awake alert oriented 3, slight slur to speech I suspect is chronic, follows able to repeat extraocular movements intact, minimally reduced right nasolabial fold, tongue midline no pronator drift, no dysmetria no neglect sensory intact gait steady Romberg negative Review/Management Diagnosis/Plan: (1) TIA (transient ischemic attack) ICD Codes: G45.9 - Transient cerebral ischemic attack, unspecified Status: Acute Plan: Probable left hemispheric TIA versus tiny infarct Etiology may be hypercoagulable state as he had a DVT few months ago Compliance to medications may be an issue Recommendations Resume Eliquis May require home health evaluation/med check follow-up Follow-up MRI brain scan PT evaluation Blood pressure control Follow-up lipid panel (2) DVT (deep venous thrombosis) ICD Codes: I82.409 - Acute embolism and thrombosis of unspecified deep veins of unspecified lower extremity Status: Chronic (3) UTI (urinary tract infection) ICD Codes: N39.0 - Urinary tract infection, site not specified Status: Acute (4) HTN (hypertension) ICD Codes: I10 - Essential (primary) hypertension Status: Chronic Problem Qualifiers (1) TIA (transient ischemic attack): Qualified Codes: G45.9 - Transient cerebral ischemic attack, unspecified (2) DVT (deep venous thrombosis): (3) HTN (hypertension): Qualified Codes: I10 - Essential (primary) hypertension Justin Nixon MD Feb 11, 2018 18:47
--- NOTE | 2018-02-11 19:36 | RADRPT ---
EXAM DATE: 02/11/2018 7:11 PM EDT AGE/SEX: 72 years / Male INDICATIONS: History of right lower extremity swelling. CLINICAL DATA: This is the patient's initial encounter. Patient reports that signs and symptoms have been present for 3 months and indicates a pain score of 0/10. MEDICAL/SURGICAL HISTORY: . BPH. None. COMPARISON: No prior [place] exams available for comparison. TECHNIQUE: Venous ultrasound of both lower extremities was performed from the inguinal ligament to t he proximal calf. Real-time, color Doppler and spectral tracing, compression and augmentation techni ques were used. FINDINGS: Right Leg: There is normal compressibility of the deep venous system from the inguinal region to the proximal calf. No echogenic clot is seen in the lumen of the common femoral, femoral, popliteal, an d posterior tibial veins. There is a normal response of the venous system to proximal and distal aug mentation and respiration. Left Leg: There is normal compressibility of the deep venous system from the inguinal region to the proximal calf. No echogenic clot is seen in the lumen of the common femoral, femoral, popliteal, and posterior tibial veins. There is a normal response of the venous system to proximal and distal augm entation and respiration. CONCLUSION: 1. The study is negative for bilateral lower extremity deep venous thrombosis. Electronically signed by: Myles Sneed MD 02/11/2018 7:35 PM EDT
[2018-02-11 20:10] LABS: HDL CHOLESTEROL 40.3 MG/DL (40.0-60.0); TOTAL BILIRUBIN ADULT 0.5 MG/DL (0.2-1.0); TOTAL PROTEIN 7.7 GM/DL (6.4-8.2)
[2018-02-11 20:15] LABS: ALBUMIN 3.4 GM/DL (3.4-5.0); CHOLESTEROL/ HDL RATIO 3.84 RATIO; DIRECT BILIRUBIN ADULT 0.1 MG/DL (0.0-0.2); INDIRECT BILIRUBIN 0.4 MG/DL (0.0-0.8)
[2018-02-11] MEDS: SODIUM CHLORIDE 0.9% FLUSH 10 ML FLUSH IV FLUSH SCH (21:37)
--- NOTE | 2018-02-11 22:16 | RADRPT ---
EXAM DATE: 02/11/2018 10:04 PM EDT AGE/SEX: 72 years / Male INDICATIONS: TIA. CLINICAL DATA: This is the patient's initial encounter. Patient reports that signs and symptoms have been present for 1 day and indicates a pain score of 0/10. MEDICAL/SURGICAL HISTORY: Deep venous thrombosis. Hypertension. . Skin Bx COMPARISON: [facility] [place], CT BRAIN W/O CONTRAST, 02/11/2018. C, CTA CAROTID ARTERIES W 3D RECON, 8. C, CTA BRAIN W 3D RECON, 02/11/2018. . TECHNIQUE: Multiplanar, multisequence examination of the brain was performed without contrast. FINDINGS: There is mild atrophy again noted. Mild increased FLAIR signal in the periventricular white matter id entified, most likely on the basis of mild chronic microvascular ischemic disease. There are no signs of intracranial hemorrhage, or mass. Diffusion weighted images demonstrate focal restricted diffusio n in the left frontal region, precentral gyrus with corresponding decreased signal on the ADC map hoa racteristic of focus of acute infarction. There is very slight increased FLAIR signal at this level. CONCLUSION: 1. Atrophy and mild white matter disease with focus of acute infarction in the left frontal lobe. Electronically signed by: Myles Sneed MD 02/11/2018 10:15 PM EDT
[2018-02-11] MEDS: SODIUM CHLOR 0.9% 1000 ML INJ 1,000 ML IV SCH (22:31)
[2018-02-11] MEDS: APIXABAN 5 MG TABLET PO SCH (22:32)
[2018-02-12 03:45] VITALS: BP 153/81; PULSE 66; RESP 17; TEMP 97.7; O2SAT 97
[2018-02-12 06:06] LABS: AUTOMATED NEUTROPHIL # 3.9 TH/MM3 (1.8-7.7); BASOPHIL % 0.4 % (0.0-2.0); EOSINOPHIL # 0.2 TH/MM3 (0-0.4); EOSINOPHIL % 2.5 % (0.0-4.0); HEMATOCRIT 40.6 % (39.0-51.0); HEMOGLOBIN 13.4 GM/DL (13.0-17.0); LYMPHOCYTE # 1.7 TH/MM3 (1.0-4.8); MEAN CELL VOLUME 92.3 FL (80.0-100.0); MEAN CORPUSCULAR HEMOGLOBIN 30.5 PG (27.0-34.0); MEAN CORPUSCULAR HGB CONC 33.1 % (32.0-36.0); MONO % 7.7 % (0.0-8.0); MONOCYTE # 0.5 TH/MM3 (0-0.9); NEUT % 62.4 % (16.0-70.0); PLATELET COUNT 191 TH/MM3 (150-450); RED CELL DISTRIBUTION WIDTH 16.5 % (11.6-17.2); WHITE BLOOD COUNT 6.2 TH/MM3 (4.0-11.0)
[2018-02-12 06:25] LABS: ALBUMIN 3.4 GM/DL (3.4-5.0); ALT (GPT) 15 U/L (12-78); AST (GOT) 16 U/L (15-37); BICARBONATE 22.6 MEQ/L (21.0-32.0); BLOOD UREA NITROGEN 15 MG/DL (7-18); CALCIUM 9.2 MG/DL (8.5-10.1); CHLORIDE 106 MEQ/L (98-107); CREATININE 1.36 MG/DL (0.60-1.30); GLOMERULAR FILTRATION RATE 62 ML/MIN (>89); GLUCOSE,RANDOM 88 MG/DL (74-106); SODIUM (NA) 140 MEQ/L (136-145)
[2018-02-12 06:28] LABS: ALKALINE PHOSPHATASE 126 U/L (45-117); TOTAL BILIRUBIN ADULT 0.9 MG/DL (0.2-1.0); TOTAL PROTEIN 8.5 GM/DL (6.4-8.2)
[2018-02-12] MEDS: SODIUM CHLOR 0.9% 1000 ML INJ 1,000 ML IV SCH (08:20)
[2018-02-12] MEDS: SODIUM CHLORIDE 0.9% FLUSH 10 ML FLUSH IV FLUSH SCH (08:27)
[2018-02-12] MEDS: APIXABAN 5 MG TABLET PO SCH (08:36)
[2018-02-12 09:10] VITALS: BP 152/79; PULSE 64; RESP 18; TEMP 98.7; O2SAT 97
--- NOTE | 2018-02-12 09:19 | HHI.PR ---
Review/Management Diagnosis/Plan: (1) Acute ischemic left MCA stroke ICD Codes: I63.512 - Cerebral infarction due to unspecified occlusion or stenosis of left middle cerebral artery Status: Acute Plan: Probable left hemispheric TIA versus tiny infarct Etiology may be hypercoagulable state as he had a DVT few months ago Compliance to medications may be an issue Recommendations Resume Eliquis; discuss compliance with this medication he has not been on it for months May require home health evaluation/med check follow-up PT evaluation Blood pressure control Discussed with patient and brother bedside He should not drive Discharge planning from neurologic standpoint today Follow-up outpatient setting further cognitive testing (2) DVT (deep venous thrombosis) ICD Codes: I82.409 - Acute embolism and thrombosis of unspecified deep veins of unspecified lower extremity Status: Chronic (3) UTI (urinary tract infection) ICD Codes: N39.0 - Urinary tract infection, site not specified Status: Acute (4) HTN (hypertension) ICD Codes: I10 - Essential (primary) hypertension Status: Chronic Subjective Subjective Comments No acute events reported No headache No chest pain No dyspnea Active Medications Current Medications Medications (Trade) Dose Ordered Sig/Phyllis Route Start Time Stop Time Status Last Admin (NS Flush) 2 ml UNSCH PRN IV FLUSH 02/11/18 17:45 (NS Flush) 2 ml BID IV FLUSH 02/11/18 21:00 (Tylenol) 650 mg Q4H PRN PO 02/11/18 17:45 (Narcan Inj) 0.4 mg UNSCH PRN IV PUSH 02/11/18 17:45 (Milk Of Magnesia Liq) 30 ml Q12H PRN PO 02/11/18 17:45 (Senokot) 17.2 mg Q12H PRN PO 02/11/18 17:45 (Eliquis) 5 mg BID PO 02/11/18 21:00 02/12/18 08:36 Sodium Chloride 1,000 ml @ 75 mls/hr [id number] IV 02/11/18 19:00 02/11/18 22:31 (Pneumovax-23 Inj) 25 mcg ONCE ONCE IM 02/12/18 10:00 02/12/18 10:01 (Flu (Quadrivalent) Vaccine Inj) 0.5 ml ONCE ONCE IM 02/12/18 10:00 02/12/18 10:01 Allergies Allergies Coded Allergies No Known Allergies (Verified Adverse Reaction, Unknown, 02/11/18) Review of Systems All other ROS: ROS reviewed as documented in chart Exam I&O / VS Vital Signs Date Time Temp Pulse Resp B/P (MAP) Pulse Ox O2 Delivery O2 Flow Rate FiO2 02/12/18 09:10 98.7 64 18 152/79 (103) 97 02/12/18 03:45 97.7 66 17 153/81 (105) 97 02/11/18 23:11 97.6 76 16 135/78 (97) 98 02/11/18 20:03 97.6 74 17 172/90 (117) 97 02/11/18 19:30 100 21 02/11/18 18:04 65 16 175/88 (117) 100 02/11/18 18:01 65 16 175/88 (117) 100 Room Air 02/11/18 15:30 67 15 171/92 (118) 100 Room Air 02/11/18 14:19 87 18 100 Room Air 02/11/18 14:16 98.1 87 18 143/78 (99) 100 Room Air 02/11/18 14:15 98.1 87 18 143/78 (99) 100 Room Air 02/11/18 14:15 100 Room Air 02/11/18 14:07 98.1 80 17 143/78 (99) 100 General: Alert and Oriented, No acute distress Eye: EOMI Respiratory: Non-labored respirations Neurologic: Alert, Oriented, Normal sensory, Normal motor, No focal defects, CN II-XII intact, Normal DTR's Psychiatric: Cooperative, Appropriate mood & affect, Normal judgement Exam Comments Awake alert oriented 3, slight slur to speech I suspect is chronic, follows able to repeat extraocular movements intact, minimally reduced right nasolabial fold, tongue midline no pronator drift, no dysmetria no neglect sensory intact gait steady Romberg negative Objective Micro and Labs Laboratory Tests Test 02/11/18 14:10 02/11/18 15:00 02/11/18 15:20 02/12/18 05:13 White Blood Count 3.5 6.2 Red Blood Count 3.88 4.40 Hemoglobin 12.0 13.4 Bedside Hemoglobin 11.6 Hematocrit 35.4 40.6 Bedside Hematocrit 34.0 Mean Corpuscular Volume 91.1 92.3 Mean Corpuscular Hemoglobin 30.9 30.5 Mean Corpuscular Hemoglobin Concent 33.9 33.1 Red Cell Distribution Width 16.2 16.5 Platelet Count 188 191 Mean Platelet Volume 7.7 8.0 Neutrophils (%) (Auto) 54.6 62.4 Lymphocytes (%) (Auto) 32.5 27.0 Monocytes (%) (Auto) 9.7 7.7 Eosinophils (%) (Auto) 2.7 2.5 Basophils (%) (Auto) 0.5 0.4 Neutrophils # (Auto) 1.9 3.9 Lymphocytes # (Auto) 1.1 1.7 Monocytes # (Auto) 0.3 0.5 Eosinophils # (Auto) 0.1 0.2 Basophils # (Auto) 0.0 0.0 CBC Comment DIFF FINAL DIFF FINAL Differential Comment Erythrocyte Sedimentation Rate 32 Prothrombin Time 10.3 Prothromb Time International Ratio 1.0 Activated Partial Thromboplast Time 23.3 Fibrinogen 273 Bedside Sodium 141 Bedside Potassium 3.7 Bedside Chloride 105 Bedside Blood Urea Nitrogen 21 Bedside Creatinine 1.3 Bedside Glucose 105 Total Bilirubin 0.5 0.9 Direct Bilirubin 0.1 Indirect Bilirubin 0.4 Aspartate Amino Transf (AST/SGOT) 22 16 Alanine Aminotransferase (ALT/SGPT) 16 15 Alkaline Phosphatase 129 126 Total Creatine Kinase 116 Troponin I 0.11 Total Protein 7.7 8.5 Albumin 3.4 3.4 Triglycerides Level 107 Cholesterol Level 155 LDL Cholesterol 93 HDL Cholesterol 40.3 Cholesterol/HDL Ratio 3.84 Vitamin B12 Level 199 Thyroid Stimulating Hormone 3rd Gen 2.770 Urine Color GREEN Urine Turbidity CLOUDY Urine pH 6.0 Urine Specific Mcandrews 1.025 Urine Protein TRACE Urine Glucose (UA) NEG Urine Ketones NEG Urine Occult Blood SMALL Urine Nitrite NEG Urine Bilirubin NEG Urine Urobilinogen LESS THAN 2.0 Urine Leukocyte Esterase MOD Urine RBC Urine WBC 68 Urine Squamous Epithelial Cells <1 Urine Bacteria RARE Urine Mucus FEW Urine Opiates Screen NEG Urine Barbiturates Screen NEG Urine Amphetamines Screen NEG Urine Benzodiazepines Screen NEG Urine Cocaine Screen NEG Urine Cannabinoids Screen NEG Blood Urea Nitrogen 15 Creatinine 1.36 Random Glucose 88 Calcium Level 9.2 Sodium Level 140 Potassium Level 3.7 Chloride Level 106 Carbon Dioxide Level 22.6 Anion Gap 11 Estimat Glomerular Filtration Rate 62 Problem Qualifiers (1) DVT (deep venous thrombosis): (2) HTN (hypertension): Qualified Codes: I10 - Essential (primary) hypertension Justin Nixon MD Feb 12, 2018 09:19
[2018-02-12] MEDS ORDERED: PNEUMOCOCCAL POLYVALENT INJ 25 MCG/0.5 ML SYR IM ONE (10:00)
[2018-02-12] MEDS ORDERED: INFLUENZA VIRUS VACCINE (QUADRIVALENT) 0.5 ML SYR IM ONE (10:00)
--- NOTE | 2018-02-12 11:19 | HHI.PR ---
Subjective Remarks Follow up TIA. The patient has no complaints at this time. He wants to go home. Denies chest pain, dyspnea, headache, vision changes. Objective Vitals Vital Signs Date Time Temp Pulse Resp B/P (MAP) Pulse Ox O2 Delivery O2 Flow Rate FiO2 02/12/18 09:10 98.7 64 18 152/79 (103) 97 02/12/18 03:45 97.7 66 17 153/81 (105) 97 02/11/18 23:11 97.6 76 16 135/78 (97) 98 02/11/18 20:03 97.6 74 17 172/90 (117) 97 02/11/18 19:30 100 21 02/11/18 18:04 65 16 175/88 (117) 100 02/11/18 18:01 65 16 175/88 (117) 100 Room Air 02/11/18 15:30 67 15 171/92 (118) 100 Room Air 02/11/18 14:19 87 18 100 Room Air 02/11/18 14:16 98.1 87 18 143/78 (99) 100 Room Air 02/11/18 14:15 98.1 87 18 143/78 (99) 100 Room Air 02/11/18 14:15 100 Room Air 02/11/18 14:07 98.1 80 17 143/78 (99) 100 I/O 02/11/18 02/11/18 02/11/18 02/12/18 02/12/18 02/12/18 07:00 15:00 23:00 07:00 15:00 23:00 Intake Total 100 ml Balance 100 ml Intake IV Total 100 ml Result Diagram: 02/12/18 0502/12/18 0513 Imaging Last Impressions Chest X-Ray 02/11/18 141 Signed Impressions: CONCLUSION: Negative examination. Neck CTA 02/11/18 141 Signed Impressions: CONCLUSION: Neck arterial vasculature demonstrates no significant abnormality. Head CTA 02/11/18 141 Signed Impressions: CONCLUSION: No acute intracranial vascular abnormality is identified. No occluded arterial vessels are seen. Lower Extremity Ultrasound 02/11/18 0000 Signed Impressions: CONCLUSION: 1. The study is negative for bilateral lower extremity deep venous thrombosis. Head CT 02/11/18 0000 Signed Impressions: CONCLUSION: 1. No acute intracranial abnormality is identified. 2. Chronic findings include mild generalized atrophy and mild periventricular white matter low-attenuation characteristic of chronic microvascular ischemia. Brain MRI 02/11/18 0000 Signed Impressions: CONCLUSION: 1. Atrophy and mild white matter disease with focus of acute infarction in the left frontal lobe. Objective Remarks General: No acute distress. Sitting up in a chair. Heart: Regular rate and rhythm. No murmur. Lungs: Clear to auscultation bilaterally. No wheezes, rales, or rhonchi. Breathing is nonlabored. Abdomen: Soft, nontender, nondistended. Extremities: No lower extremity edema. Psych: Alert and oriented. Neuro: Normal speech. No focal deficits noted. Procedures None Urinary Catheter: No Vascular Central Line Catheter: No A/P Problem List: (1) UTI (urinary tract infection) ICD Code: N39.0 - Urinary tract infection, site not specified Status: Acute (2) TIA (transient ischemic attack) ICD Code: G45.9 - Transient cerebral ischemic attack, unspecified Status: Acute Assessment and Plan 1. TIA: Appreciate neurology recommendations. CT of the head, CTA of the neck and brain are negative. Continue aspirin, Plavix. Evaluated by PT. Cleared for discharge by neurology. Awaiting echocardiogram results. 2. UTI: Continue antibiotics. Patient has been treated by a urologist for recurrent UTIs. He was advised to follow-up with urology as outpatient. 3. History of right lower extremity DVT: Continue Eliquis. Discharge Planning Discharge home today if echocardiogram is unremarkable. Problem Qualifiers (1) TIA (transient ischemic attack): Qualified Codes: G45.9 - Transient cerebral ischemic attack, unspecified Javed Travis MD Feb 12, 2018 11:19
--- NOTE | 2018-02-12 11:20 | HHI.DCPOC ---
Discharge Care Plan Diagnosis: (1) TIA (transient ischemic attack) (2) UTI (urinary tract infection) (3) DVT (deep venous thrombosis) (4) HTN (hypertension) (5) Acute ischemic left MCA stroke Goals to Promote Your Health * To prevent worsening of your condition and complications * To maintain your health at the optimal level Directions to Meet Your Goals Take your medications as prescribed Follow your dietary instruction Follow activity as directed Keep your appointments as scheduled Take your immunizations and boosters as scheduled If your symptoms worsen call your PCP, if no PCP go to Urgent Care Center or Emergency Room Smoking is Dangerous to Your Health. Avoid second hand smoke Call the 24-hour hour crisis hotline for domestic abuse at Javed Travis MD Feb 12, 2018 11:20
[2018-02-12 11:31] VITALS: BP 146/80; PULSE 62; RESP 18; TEMP 98.5; O2SAT 97
--- NOTE | 2018-02-12 14:11 | ECHRPT ---
Indication: Transient cerebral ischemic attack, unspecified CONCLUSIONS Normal left ventricular size and wall thickness. The left ventricular systolic function is normal with an estimated ejection fraction in the range of 60-65%. Left ventricular diastolic function parameters are normal. There is trace tricuspid valve regurgitation. Trace mitral valve regurgitation. BP: / HR: Rhythm: MEASUREMENTS (Male / Female) Normal Values Technical Quality: 2D ECHO LV Diastolic Diameter PLAX 4.1 cm 4.2 - 5.9 / 3.9 - 5.3 cm LV Systolic Diameter PLAX 2.7 cm IVS Diastolic Thickness 1.1 cm 0.6 - 1.0 / 0.6 - 0.9 cm LVPW Diastolic Thickness 1.0 cm 0.6 - 1.0 / 0.6 - 0.9 cm LV Relative Wall Thickness 0.5 RV Internal Dim ED PLAX 2.6 cm M-MODE Aortic Root Diameter MM 3.3 cm LA Systolic Diameter MM 4.0 cm LA Ao Ratio MM 1.2 AV Cusp Separation MM 2.1 cm FINDINGS LEFT VENTRICLE Normal left ventricular size and wall thickness. The left ventricular systolic function is normal wi th an estimated ejection fraction in the range of 60-65%. Left ventricular diastolic function parameters a re normal. RIGHT VENTRICLE Normal right ventricular size and systolic function. LEFT ATRIUM The left atrial size is normal. RIGHT ATRIUM The right atrial size is normal. ATRIAL SEPTUM Normal atrial septal thickness without atrial level shunting by limited color doppler interrogation. AORTA The aortic root and proximal ascending aorta are not well visualized. MITRAL VALVE Structurally normal mitral valve. No mitral valve stenosis Trace mitral valve regurgitation. AORTIC VALVE Trileaflet aortic valve. No aortic valve stenosis or regurgitation. TRICUSPID VALVE Structurally normal tricuspid valve. No tricuspid valve stenosis There is trace tricuspid valve regurgitation. PULMONARY VALVE No pulmonary valve regurgitation or stenosis. VESSELS The inferior vena cava was not well visualized. PERICARDIUM No pericardial effusion. Dora Nathan MD, FACC (Electronically Signed) Final Date:12 February 2018 14:09
[2018-02-12] MEDS ORDERED: APIX5TAB PO (14:33)
--- NOTE | 2018-02-12 19:18 | EKG ---
Date Performed: 02/11/2018 Time Performed: 15:03:01 PTAGE: 72 years EKG: Sinus rhythm INCOMPLETE RIGHT BUNDLE BRANCH BLOCK LEFT ANTERIOR FASCICULAR BLOCK VOLTAGE CRITERIA FOR LVH POSSIBL E LATERAL MYOCARDIAL INFARCTION ABNORMAL ECG PREVIOUS TRACING : 06/30/2015 19.46 Since the previous tracing, no significant change noted DOCTOR: Dora Nathan Interpretating Date/Time 02/12/2018 19:16:48
[2018-02-12 20:24] LABS: HEMOGLOBIN A1C 5.4 % (4.3-6.0)
== END 2018-02-12 19:03 | disposition home or self-care (01) ==
LOC: NEPC 13:53 → NEDA 16:09 → NEPFCDU 18:20
PROVIDERS: ADMIT Family Medicine; ATTEND Family Medicine
DX: G45.9 Transient cerebral ischemic attack, unspecified (principal); N39.0 Urinary tract infection, site not specified; R90.82 White matter disease, unspecified; I10 Essential (primary) hypertension; N40.0 Benign prostatic hyperplasia without lower urinary tract symptoms; R94.31 Abnormal electrocardiogram [ECG] [EKG]; Z86.718 Personal history of other venous thrombosis and embolism; Z79.01 Long term (current) use of anticoagulants; Z80.42 Family history of malignant neoplasm of prostate; Z82.49 Family history of ischemic heart disease and other diseases of the circulatory system
CPT/HCPCS: 70450; 70496; 70498; 70551; 71045; 80048; 80053; 80061; 80076; 80307; 81001; 82550; 82607; 83036; 84443; 84484; 85025; 85384; 85610; 85652; 85730; 86850; 86900; 86901; 93005; 93306; 93970; 96361; 96365; 97161; 99291; G0378; G8987; G8988; J0696; J7030; Q9967